=== PATIENT | female | born 1950 | race Caucasian/White ===

== ENCOUNTER → 2018-01-06 12:44 | Outpatient (CLI) | payer MEDICARE, SELFPAY ==
--- NOTE | 2018-01-06 12:51 | US_ITS ---
US breast LT complete COMPARISON: Digital mammograms 11/01/2017 and additional views left breast 01/06/2018 HISTORY: Possible asymmetric densities left breast seen on recent mammogram TECHNIQUE: Targeted ultrasound evaluation of the entire breast FINDINGS: Diffuse heterogenic echogenicity is seen all 4 quadrants of the breast. There is no definite cystic or solid lesions identified and there are no findings to suggest architectural distortion. There is a normal-appearing node in the axilla. IMPRESSION: Essentially negative ultrasound left breast no cystic or solid lesions identified, the asymmetric densities likely represent asymmetric glandular tissue. Recommend the patient continue with yearly screening mammography
--- NOTE | 2018-01-06 12:51 | MM_ITS ---
MM Dig mamm DX unilat LT CAD COMPARISON: Digital mammograms 11/01/2017 INDICATION: Possible change in asymmetric densities left breast ORDERING PHYSICIAN: Lucho Zaldivar MD PATIENT AGE: 67 years TECHNIQUE: Possible compression MLO and CC views and 90 degrees lateral spot view FINDINGS: Scattered fibroglandular densities are seen in the breast. The spot views appear to show benign-appearing asymmetric densities primarily upper outer quadrant. However ultrasound performed the same date showed no ultrasound correlation with either cystic or solid lesions. These areas likely represent asymmetric glandular tissue. IMPRESSION: No definite suspicious lesion seen on the additional views, negative ultrasound examination same date, recommend continued yearly screening mammography BI-RADS Category: 2 Benign Finding(s) RECOMMENDED FOLLOW-UP: 1YR - 1 YEAR FOLLOW-UP (A letter has been sent to the patient regarding results of the study.)
== END ==
PROVIDERS: Family Provider Nurse Practitioner Family; PCP Internal Medicine Adolescent Medicine; Visit Provider Internal Medicine Adolescent Medicine
DX: R92.8 Other abnormal and inconclusive findings on diagnostic imaging of breast (principal)
CPT/HCPCS: 76641; 77065

== ENCOUNTER → 2018-08-18 10:50 | Outpatient (CLI) | payer MEDICARE, SELFPAY ==
[2018-08-18 11:38] LABS: Basophils % 0.4 % (0.1-2.0); Eosinophils # 0.1 K/mm3 (0.0-0.4); Eosinophils % 1.9 % (0.1-12.0); Hematocrit 41.5 % (37.0-47.0); Hemoglobin 13.9 g/dL (12.2-16.2); Lymphocytes # 1.9 K/mm3 (0.7-4.5); Lymphocytes % 32.8 K/mm3 (10-50); Mean Corpuscular HGB Conc 33.5 g/dL (31.8-35.4); Mean Corpuscular Volume 89.7 fl (81-99); Mean Platelet Volume 7.1 fl (7.4-10.4); Monocytes # 0.3 K/mm3 (0.1-1.0); Monocytes % 4.6 % (1.7-9.3); Neutrophils # 3.4 K/mm3 (1.8-7.8); Neutrophils % 60.3 % (37.0-80.0); Platelet Count 225 K/mm3 (142-424); Red Blood Count 4.63 M/mm3 (4.20-5.40); Red Cell Distribution Width 13.2 % (11.5-17.5); White Blood Count 5.6 K/mm3 (4.8-10.8)
[2018-08-18 12:18] LABS: Chol/HDL Ratio 5.3 (1-3.5); Cholesterol 207 mg/dL (140-200); HDL Cholesterol 39 mg/dL (29-89); LDL Cholesterol 135 mg/dL (0-130); Thyroid Stimulating Hormone 2.74 uIU/ml (0.358-3.740); Triglycerides 167 mg/dL (30-200); VLDL Cholesterol 33 mg/dL (0-40)
[2018-08-19 17:51] LABS: Alanine Aminotransferase 32 U/L (12-78); Albumin Level 4.1 gm/dL (3.4-5.0); Albumin/Globulin Ratio 1.2 (1.1-1.8); Alkaline Phosphatase 78 U/L (46-116); Anion Gap 11.7 mEq/L (5-15); Aspartate Amino Transferase 19 U/L (15-37); Bilirubin,Total 0.8 mg/dL (0.2-1.0); Blood Urea Nitrogen 18 mg/dL (7-18); Calcium 8.7 mg/dL (8.5-10.1); Carbon Dioxide 30 mmol/L (21.0-32.0); Chloride 104 mmol/L (98-107); Creatinine,Serum 0.65 mg/dL (0.55-1.02); Estimated Glomerular Filt Rate 91 ml/min (>60); GFR (African American) 110 ML/MIN (>60); Globulin 3.5 gm/dl (1.3-3.2); Glucose 137 mg/dL (74-106); Potassium 4.7 mmoL/L (3.5-5.1); Sodium 141 mmol/L (136-145); Total Protein,Serum 7.6 gm/dL (6.4-8.2)
== END ==
PROVIDERS: PCP Internal Medicine Adolescent Medicine; Visit Provider Nurse Practitioner Family
DX: R60.9 Edema, unspecified (principal); I10 Essential (primary) hypertension
CPT/HCPCS: 36415; 80053; 80061; 84443; 85025

== ENCOUNTER → 2019-03-13 11:29 | Outpatient (CLI) | payer MEDICARE, SELFPAY ==
[2019-03-13 12:25] LABS: Basophils % 0.4 % (0.1-2.0); Eosinophils # 0.1 K/mm3 (0.0-0.4); Eosinophils % 1.4 % (0.1-12.0); Hematocrit 38.5 % (37.0-47.0); Hemoglobin 13.3 g/dL (12.2-16.2); Lymphocytes # 2.2 K/mm3 (0.7-4.5); Lymphocytes % 31.3 % (10-50); Mean Corpuscular HGB Conc 34.6 g/dL (31.8-35.4); Mean Corpuscular Hemoglobin 30.1 pg (27.0-31.2); Mean Corpuscular Volume 87.2 fl (81-99); Mean Platelet Volume 7.2 fl (7.4-10.4); Monocytes # 0.3 K/mm3 (0.1-1.0); Monocytes % 4.4 % (1.7-9.3); Neutrophils # 4.5 K/mm3 (1.8-7.8); Neutrophils % 62.6 % (37.0-80.0); Platelet Count 277 K/mm3 (142-424); Red Blood Count 4.41 M/mm3 (4.20-5.40); Red Cell Distribution Width 13.1 % (11.5-17.5); White Blood Count 7.1 K/mm3 (4.8-10.8)
[2019-03-13 12:36] LABS: Hemoglobin A1C 6.5 % (0.0-7.0)
[2019-03-13 13:41] LABS: Erythrocyte Sedimentation Rate 52 mm/hr (0-30)
[2019-03-13 15:27] LABS: Alanine Aminotransferase 33 U/L (12-78); Albumin Level 4.4 gm/dL (3.4-5.0); Albumin/Globulin Ratio 1.2 (1.1-1.8); Alkaline Phosphatase 76 U/L (46-116); Anion Gap 12.6 mEq/L (5-15); Aspartate Amino Transferase 19 U/L (15-37); Bilirubin,Total 1.4 mg/dL (0.2-1.0); Blood Urea Nitrogen 24 mg/dL (7-18); Carbon Dioxide 29 mmol/L (21.0-32.0); Chloride 100 mmol/L (98-107); Chol/HDL Ratio 5.7 (1-3.5); Cholesterol 229 mg/dL (140-200); Creatinine,Serum 0.85 mg/dL (0.55-1.02); Estimated Glomerular Filt Rate 66 ml/min (>60); GFR (African American) 80 ML/MIN (>60); Globulin 3.8 gm/dl (1.3-3.2); Glucose 120 mg/dL (74-106); HDL Cholesterol 40 mg/dL (29-89); LDL Cholesterol 166 mg/dL (0-130); Potassium 4.6 mmoL/L (3.5-5.1); Sodium 137 mmol/L (136-145); Thyroid Stimulating Hormone 2.74 uIU/ml (0.358-3.740); Total Protein,Serum 8.2 gm/dL (6.4-8.2); Triglycerides 117 mg/dL (30-200); Uric Acid 6.4 mg/dL (2.6-7.2); VLDL Cholesterol 23 mg/dL (0-40)
== END ==
PROVIDERS: Visit Provider Nurse Practitioner Family
DX: I10 Essential (primary) hypertension (principal); R73.03 Prediabetes; M25.572 Pain in left ankle and joints of left foot; E01.0 Iodine-deficiency related diffuse (endemic) goiter
CPT/HCPCS: 36415; 80053; 80061; 83036; 84443; 84550; 85025; 85651

== ENCOUNTER → 2019-03-30 09:51 | Outpatient (CLI) | payer MEDICARE, SELFPAY ==
--- NOTE | 2019-03-30 09:57 | MM_ITS ---
MM Dig screening mamm BI w/CAD CAD Screening COMPARISON: Digital mammograms with CAD 11/01/2017] additional views left breast 01/06/2018 INDICATION: Is a history of breast cancer patient's 3 paternal cousins. TECHNIQUE: Standard CC and MLO images were obtained. R2 CAD reviewed. FINDINGS: Scattered fibroglandular densities are seen in both breasts. There is benign-appearing asymmetric density upper outer quadrant left breast which was noted previously. This is stable and unchanged in appearance. There are couple stable benign-appearing microcalcifications in the left breast. There is a mole marker right breast. There is no suspicious lesion and there are no suspicious microcalcifications. IMPRESSION: Fibrofatty parenchyma with no suspicious lesion seen BI-RADS Category: 2 Benign Finding(s) RECOMMENDED FOLLOW-UP: 1YR - 1 YEAR FOLLOW-UP (A letter has been sent to the patient regarding results of the study.)
== END ==
PROVIDERS: PCP Nurse Practitioner Family; Visit Provider Nurse Practitioner Family
DX: Z12.31 Encounter for screening mammogram for malignant neoplasm of breast (principal)
CPT/HCPCS: 77067

== ENCOUNTER → 2019-07-14 13:31 | Outpatient (CLI) | payer MEDICARE, SELFPAY ==
--- NOTE | 2019-07-14 13:33 | MR_ITS ---
PROCEDURE: MR LUMBAR SPINE WO CON CLINICAL INDICATION: ACUTE LEFT SIDED LOW BACK PAIN Acute left-sided low back pain, left leg pain COMPARISON: No exams were available for comparison TECHNIQUE: Standard multiplanar multiecho sequences are performed without contrast. 3-D MIP and myelographic images are also rendered and reviewed FINDINGS: Spinal cord ends at the T12 level. L1-L2: Mild degenerative disc disease. L2-L3: Degenerate disc disease with end plate osteophytes and mild type 1 endplate changes posteriorly. There is bulging disc along with a small extruded left herniated disc with mild inferior extrusion impinging upon the left L2 nerve root. There is moderate left lateral recess narrowing. L3-L4: Degenerate disc disease with bulging disc along with moderate facet and ligamentum hypertrophy with bilateral lateral recess narrowing slightly greater on the right and mild right-sided and moderate left-sided foraminal narrowing. L4-5: 5 mm anterolisthesis of L3 with bulging disc along with severe facet ligamentum hypertrophy. There is severe canal stenosis with the canal measuring proximally 6 mm. There is severe bilateral lateral recess and severe bilateral foraminal narrowing. L5-S1: Moderate facet ligamentum hypertrophy with severe bilateral lateral recess and foraminal narrowing with bulging disc. Incidental note is made of an 18 mm and a a 8 mm left renal cyst as well as a 5 mm right renal cyst. IMPRESSION: Abnormal MRI of the lumbar spine with multilevel lumbar spondylosis with facet ligamentum hypertrophy. L2-L3: Degenerate disc disease with end plate osteophytes and mild type 1 endplate changes posteriorly. There is bulging disc along with a small extruded left herniated disc with mild inferior extrusion impinging upon the left L2 nerve root. There is moderate left lateral recess narrowing. L3-L4: Degenerate disc disease with bulging disc along with moderate facet and ligamentum hypertrophy with bilateral lateral recess narrowing slightly greater on the right and mild right-sided and moderate left-sided foraminal narrowing. L4-5: 5 mm anterolisthesis of L3 with bulging disc along with severe facet ligamentum hypertrophy. There is severe canal stenosis with the canal measuring proximally 6 mm. There is severe bilateral lateral recess and severe bilateral foraminal narrowing. L5-S1: Moderate facet ligamentum hypertrophy with severe bilateral lateral recess and foraminal narrowing with bulging disc Dictated by: Harinder Milner MD 07/15/2019 07:58 Signed by: <Electronically signed by Harinder Milner MD in [place]> 07/15/2019 07:58
== END ==
PROVIDERS: PCP Nurse Practitioner Family; Visit Provider Internal Medicine Adolescent Medicine
DX: M54.42 Lumbago with sciatica, left side (principal)
CPT/HCPCS: 72148; 76376

== ENCOUNTER → 2019-08-07 10:15 | Outpatient (POV) | payer MEDICARE, SELFPAY ==
[2019-08-07 10:51] VITALS: BP 132/87; PULSE 100; RESP 18; O2SAT 98; BMI 36.2
--- NOTE | 2019-08-07 14:16 | HMH.PMCON ---
Assessment and Plan (1) Degenerative joint disease (DJD) of lumbar spine Current visit: Yes Status: Chronic Qualifiers: Spinal osteoarthritis complication: with radiculopathy Qualified Code(s): M47.26 - Other spondylosis with radiculopathy, lumbar region Category: Medical Code(s): M47.816 - Spondylosis without myelopathy or radiculopathy, lumbar region - Assessment and plan all Dx Assessment and Plan for all problems:: We will schedule a L2-L3 lumbar epidural steroid injection for the patient. I believe it would be beneficial given her symptomology. Patient is not on any anticoagulation therapy she is continuing a home stretching program. Patient's been instructed to call the office if she has any issues prior to her next appointment. Dr. Mancera has reviewed this note and agrees with this plan of care. This note was dictated using voice recognition software and may contain errors or omissions HPI - Data of Consult Consult date: 08/07/19 Requesting Physician: Clarissa Lopez APRN Primary Care Provider: Maeve Simpson APRN - Consult Narrative Reason for consult: Back pain History of present illness: Ms. Collins is a 69 year old female who presents today for consultation in regards to her low back pain. She has an MRI showing ligamentum flavum hypertrophy, spinal stenosis, degenerative disc disease to L2 with nerve impingement on the left side. Most of the patient's pain is on the left side. Radiating down her leg. Patient is interested in injective therapy. Patient has numbness and tingling to her foot on that side. She is not on any anticoagulation therapy. She is continuing a home stretching program. She is on anti-inflammatories. CC: Clarissa Lopez APRN [facility] History I have reviewed the patient's past medical history: Yes Medical History: Reports:: Hypertension Denies:: Cancer, Diabetes Mellitus Type 1, Diabetes Mellitus Type 2, MRSA *Have you ever received a pneumonia vaccine?: Yes *Have you received a flu vaccine this season?: Yes Other Surgeries: Yes: Hysterectomy-Total Amputation: No Fractures: No - *Social History Smoking Status: Never smoker Alcohol Intake: never *Occupational Status:: other Housing: house Household Members: other *Travel in the last 8 weeks: None Family Hx:: Unable to obtain Review of Systems - Review of Systems ROS General: no recent weight change, no fever, no sleep disturbances Respiratory: no cough, no shortness of air, no recurring pulmonary infections Cardiovascular/Peripheral Vascular: No chest pain, No palpitations, no edema, no shortness of breath. Gastrointestinal: no incontinence, normal bowel movements reported Genitourinary: no incontinence Musculoskeletal: Back pain, leg pain Psychiatric: normal mood/ affect Neurological: [denies weakness in extremities], [denies balance issues] Meds Allergies Allergy/AdvReac Type Severity Reaction Status Date / Time No Known Allergies Allergy Unverified 11/09/17 14:45 Objective Vital signs: Pulse Resp BP Pulse Ox 100 H 18 132/87 98 08/07/19 10:51 08/07/19 10:51 08/07/19 10:51 08/07/19 10:51 Narrative: Physical Exam General: Alert and oriented x3, no acute distress, pleasant and cooperative, [on room air] Lungs: Resps E/U, Symmetrical chest expansion, Eyes: PERRL Musculoskeletal: Flexion and extension of lumbar spine somewhat guarded secondary to pain, deep tendon reflexes normal, strength in upper and lower extremities [5/5], [abnormal gait noted] Neurological: speech clear, aircraft mechanic structures equal, no gross sensory deficits Opioid Risk Tool - Opioid Risk Tool-Female Family hx alcohol abuse: N Family hx illegal drugs: N Family hx rx drug abuse: N Personal hx alcohol abuse: N Personal hx illegal drugs: N Personal hx rx drug abuse: N Age: 45+ Hx of sexual abuse: N Mental health issues-ADD,OCD,Bipolar, etc: N Hx of depression: N Female Risk Score:
--- NOTE | 2019-08-07 14:19 | P.CONS_ITS ---
Assessment and Plan (1) Degenerative joint disease (DJD) of lumbar spine Current visit: Yes Status: Chronic Qualifiers: Spinal osteoarthritis complication: with radiculopathy Qualified Code(s): M47.26 - Other spondylosis with radiculopathy, lumbar region Category: Medical Code(s): M47.816 - Spondylosis without myelopathy or radiculopathy, lumbar region - Assessment and plan all Dx Assessment and Plan for all problems:: We will schedule a L2-L3 lumbar epidural steroid injection for the patient. I believe it would be beneficial given her symptomology. Patient is not on any anticoagulation therapy she is continuing a home stretching program. Patient's been instructed to call the office if she has any issues prior to her next appointment. Dr. Mancera has reviewed this note and agrees with this plan of care. This note was dictated using voice recognition software and may contain errors or omissions HPI - Data of Consult Consult date: 08/07/19 Requesting Physician: Clarissa Lopez APRN Primary Care Provider: Maeve Simpson APRN - Consult Narrative Reason for consult: Back pain History of present illness: Ms. Collins is a 69 year old female who presents today for consultation in regards to her low back pain. She has an MRI showing ligamentum flavum hypertrophy, spinal stenosis, degenerative disc disease to L2 with nerve impingement on the left side. Most of the patient's pain is on the left side. Radiating down her leg. Patient is interested in injective therapy. Patient has numbness and tingling to her foot on that side. She is not on any anticoagulation therapy. She is continuing a home stretching program. She is on anti-inflammatories. CC: Clarissa Lopez APRN [facility] History I have reviewed the patient's past medical history: Yes Medical History: Reports:: Hypertension Denies:: Cancer, Diabetes Mellitus Type 1, Diabetes Mellitus Type 2, MRSA *Have you ever received a pneumonia vaccine?: Yes *Have you received a flu vaccine this season?: Yes Other Surgeries: Yes: Hysterectomy-Total Amputation: No Fractures: No - *Social History Smoking Status: Never smoker Alcohol Intake: never *Occupational Status:: other Housing: house Household Members: other *Travel in the last 8 weeks: None Family Hx:: Unable to obtain Review of Systems - Review of Systems ROS General: no recent weight change, no fever, no sleep disturbances Respiratory: no cough, no shortness of air, no recurring pulmonary infections Cardiovascular/Peripheral Vascular: No chest pain, No palpitations, no edema, no shortness of breath. Gastrointestinal: no incontinence, normal bowel movements reported Genitourinary: no incontinence Musculoskeletal: Back pain, leg pain Psychiatric: normal mood/ affect Neurological: [denies weakness in extremities], [denies balance issues] Meds Allergies Allergy/AdvReac Type Severity Reaction Status Date / Time No Known Allergies Allergy Unverified 11/09/17 14:45 Objective Vital signs: Pulse Resp BP Pulse Ox 100 H 18 132/87 98 08/07/19 10:51 08/07/19 10:51 08/07/19 10:51 08/07/19 10:51 Narrative: Physical Exam General: Alert and oriented x3, no acute distress, pleasant and cooperative, [on room air] Lungs: Resps E/U, Symmetrical chest expansion, Eyes: PERRL Muscul
== END ==
PROVIDERS: PCP Nurse Practitioner Family; Visit Provider Clinical Nurse Specialist Family Health
DX: M47.816 Spondylosis without myelopathy or radiculopathy, lumbar region (principal)
CPT/HCPCS: 99202

== ENCOUNTER → 2019-09-04 10:04 | Outpatient (POV) | payer MEDICARE, SELFPAY ==
[2019-09-04 10:32] VITALS: BP 115/70; PULSE 102; RESP 18; O2SAT 98; BMI 35.9
--- NOTE | 2019-09-04 12:51 | HMH.PAINSOAP ---
[facility] Pain Management SOAP Note Subjective:: Patient is a 69-year-old white female who presents today for follow-up after lumbar epidural steroid injection. Patient rates her pain a 5 out of 10. She did not get any relief from her epidural. Patient does have significant spinal stenosis with ligamentum flavum hypertrophy. She and I discussed a mild procedure at the L2-L3 L3-L4 levels. Dr. Mancera is done epidurogram at these levels where there is significant stenosis at these levels. Patient is not on any anticoagulation therapy. Most of her pain is when she standing and walking. She finds her self leaning forward to get relief. It has begun to interfere with activities of daily living ROS General: no recent weight change, no fever, no sleep disturbances Respiratory: no cough, no shortness of air, no recurring pulmonary infections Cardiovascular/Peripheral Vascular: No chest pain, No palpitations, no edema, no shortness of breath. Gastrointestinal: no incontinence, normal bowel movements reported Genitourinary: no incontinence Musculoskeletal: Back pain, leg pain Psychiatric: normal mood/ affect Neurological: [denies weakness in extremities], [denies balance issues] Objective:: Physical Exam General: Alert and oriented x3, no acute distress, pleasant and cooperative, [on room air] Lungs: Resps E/U, Symmetrical chest expansion, Eyes: PERRL Musculoskeletal: Flexion and extension of lumbar spine somewhat guarded secondary to pain, deep tendon reflexes normal, strength in upper and lower extremities [5/5], [abnormal gait noted] Neurological: speech clear, storage battery inspector and tester equal, no gross sensory deficits Assessment:: Degenerative disc disease lumbar spine with lumbar spinal stenosis neurogenic claudication Plan:: Patient is going to look into the mild procedure and give us a call if she would like to move forward with that I do think it would be beneficial for her we will do the L2-L3 L3-L4 levels. Dr. Mancera has reviewed this note and agrees with this plan of care. This note was dictated using voice recognition software and may contain errors or omissions [facility] History I have reviewed the patient's past medical history: Yes Medical History: Reports:: Hypertension Denies:: Cancer, Diabetes Mellitus Type 1, Diabetes Mellitus Type 2, MRSA, Seizures *Have you ever received a pneumonia vaccine?: Yes *Have you received a flu vaccine this season?: Yes Other Surgeries: Yes: Hysterectomy-Total Amputation: No Fractures: No - *Social History Smoking Status: Never smoker Alcohol Intake: never *Occupational Status:: other Housing: house Household Members: spouse, other *Travel in the last 8 weeks: None Family Hx:: Unable to obtain
== END ==
PROVIDERS: PCP Nurse Practitioner Family; Visit Provider Clinical Nurse Specialist Family Health
DX: M48.062 Spinal stenosis, lumbar region with neurogenic claudication (principal)
CPT/HCPCS: 99212

== ENCOUNTER → 2019-10-17 09:21 | Outpatient (POV) | payer MEDICARE, SELFPAY ==
[2019-10-17 09:35] VITALS: BP 149/71; PULSE 91; RESP 18; O2SAT 98; BMI 35.9
--- NOTE | 2019-10-17 09:46 | HMH.PAINSOAP ---
[facility] Pain Management SOAP Note Subjective:: Patient is a pleasant 69-year-old white female who presents today for follow-up after a mild procedure. Patient rates her pain a 1 out of 10 she states she is able to stand and walk with not as much pain in her legs. Patient overall doing extremely well and is very satisfied with her progress. Patient has completely healed from the incisions. ROS General: no recent weight change, no fever, no sleep disturbances Respiratory: no cough, no shortness of air, no recurring pulmonary infections Cardiovascular/Peripheral Vascular: No chest pain, No palpitations, no edema, no shortness of breath. Gastrointestinal: no new onset incontinence, normal bowel movements reported Genitourinary: no new onset incontinence Musculoskeletal: Back pain leg pain at times Psychiatric: normal mood/ affect Neurological: [denies new onset weakness in extremities], [denies new onset balance issues] Objective:: Physical Exam General: Alert and oriented x3, no acute distress, pleasant and cooperative, [on room air] Lungs: Resps E/U, Symmetrical chest expansion, Eyes: PERRL Musculoskeletal: Flexion and extension of lumbar spine somewhat guarded secondary to pain, deep tendon reflexes normal, strength in upper and lower extremities [5/5], normal gait noted Neurological: speech clear, therapeutic activities services worker equal, no gross sensory deficits Assessment:: Spinal stenosis with neurogenic claudication Plan:: We will follow-up with the patient 1 month reassess her symptoms at that time she has been instructed to call the office if she has any issues prior to her next appointment. Dr. Mancera has reviewed this note and agrees with this plan of care. This note was dictated using voice recognition software and may contain errors or omissions [facility] History I have reviewed the patient's past medical history: Yes Medical History: Reports:: Diabetes Mellitus Type 2, Hypertension Denies:: Cancer, Diabetes Mellitus Type 1, Internal Pacemaker, MRSA, Seizures *Have you ever received a pneumonia vaccine?: Yes *Have you received a flu vaccine this season?: Yes Other Medical History: Denies: Blood Transfusion Reaction Laterality Cases: Bilateral: Carpal Tunnel Release Other Surgeries: Yes: Hysterectomy-Total. No: Pacemaker Amputation: No Fractures: No - *Social History Smoking Status: Never smoker Alcohol Intake: never Substance Use Type: other *Occupational Status:: other Housing: house Household Members: spouse, other *Travel in the last 8 weeks: None Family Hx:: Cancer, Diabetes, Hyperlipidemia, Hypertension, Stroke
== END ==
PROVIDERS: PCP Nurse Practitioner Family; Visit Provider Clinical Nurse Specialist Family Health
DX: M48.062 Spinal stenosis, lumbar region with neurogenic claudication (principal)
CPT/HCPCS: 99212

== ENCOUNTER → 2019-11-20 09:33 | Outpatient (POV) | payer MEDICARE, SELFPAY ==
[2019-11-20 09:59] VITALS: BP 137/74; PULSE 96; RESP 18; BMI 35.9
--- NOTE | 2019-11-20 10:00 | P.CONS_ITS ---
[facility] Pain Management SOAP Note Subjective:: Patient is a pleasant 69-year-old white female who presents today for follow-up after a minimally invasive lumbar decompression procedure. Patient is being treated for spinal stenosis with neurogenic claudication. Patient says that she is doing well following her procedure. She rates her pain a 2 out of 10 today. Patient says she is able to walk and stand for longer periods of time. She says she is having less weakness to her lower extremities. She is very satisfied following the procedure. Patient says that she is now dealing with a new diagnosis of cancer with her . She does say, however, she is feeling much better. She is continuing with anti-inflammatories and a home stretching program. Review of Systems General: No recent weight changes, no fever, no sleep disturbances Respiratory: No cough, no shortness of air, no recurring pulmonary infections Cardiovascular/peripheral vascular: No chest pain, no palpitations, no edema, no shortness of breath Gastrointestinal: No new onset incontinence, normal bowel movements reported Genitourinary: No new onset incontinence Musculoskeletal: Low back pain Psychiatric: Normal mood/affect Neurological: [Denies weakness in extremities], [denies balance issues] Objective:: Physical exam General: Alert and oriented x3, no acute distress, pleasant and cooperative, [on room air] Lungs: Respirations even and unlabored, symmetrical chest expansion Eyes: PERRL Musculoskeletal: Flexion and extension of lumbar spine somewhat guarded secondary to pain, deep tendon reflexes normal, strength in upper and lower extremities [5/5], [abnormal gait noted] Neurological: Speech clear, railroad design consultant equal, no gross sensory deficit Assessment:: Spinal stenosis with neurogenic claudication Plan:: Overall, the patient is doing well following her mild procedure. Patient says that she is doing very well. We will follow-up with her in 3 months to reassess her symptoms. The patient has been instructed to contact the clinic if she has any concerns before her next appointment. Dr. Mancera has reviewed this note and agrees with this plan of care. This note was dictated using voice recognition software and make contain errors or omissions. [facility] History I have reviewed the patient's past medical history: Yes Medical History: Reports:: Diabetes Mellitus Type 2, Hypertension Denies:: Cancer, Diabetes Mellitus Type 1, Internal Pacemaker, MRSA, Seizures *Have you ever received a pneumonia vaccine?: Yes *Have you received a flu vaccine this season?: Yes Other Medical History: Denies: Blood Transfusion Reaction Laterality Cases: Bilateral: Carpal Tunnel Release Other Surgeries: Yes: Hysterectomy-Total. No: Pacemaker Amputation: No Fractures: No - *Social History Smoking Status: Never smoker Alcohol Intake: never Substance Use Type: other *Occupational Status:: other Housing: house Household Members: spouse, other *Travel in the last 8 weeks: None Family Hx:: Cancer, Diabetes, Hyperlipidemia, Hypertension, Stroke
== END ==
PROVIDERS: PCP Internal Medicine Adolescent Medicine; Visit Provider Clinical Nurse Specialist Family Health
DX: M48.062 Spinal stenosis, lumbar region with neurogenic claudication (principal)
CPT/HCPCS: 99212

== ENCOUNTER → 2020-08-07 09:04 | Outpatient (CLI) | payer MEDICARE, SELFPAY ==
--- NOTE | 2020-08-07 10:02 | MM_ITS ---
PROCEDURE: MM DIG SCREENING MAMM BI W/CAD Digital Breast Tomosynthesis Included CLINICAL INDICATION: SCREENING There is a history of breast cancer in the patient's 3 maternal cousins. COMPARISON: MG DMSB DIG MAMM-SCREEN GARIMA W/CAD from 11/01/2017 MG DXLT MM Dig mamm DX unilat LT CAD from 01/06/2018 MG DIG MAMM-SCREEN GARIMA from 03/30/2019 TECHNIQUE: Standard CC and MLO images and 3D Tomosynthesis was obtained. R2 CAD reviewed. FINDINGS: Mild to moderate scattered fibroglandular densities are seen throughout both breasts. There is a mole marker near the axillary tail right breast. There couple of benign-appearing calcifications in each breast. There is a stable small benign-appearing nodular density outer quadrant left breast. There is no suspicious lesion and no suspicious microcalcifications. IMPRESSION: Fibrofatty parenchyma with no suspicious lesions seen BI-RAD Category: 2 Benign Finding(s) FOLLOW-UP: 1YR 1 Year Follow-up (A letter has been sent to the patient regarding results of the study.) Dictated by: Dr. Wilfredo Mccloud MD 08/09/2020 12:43 Dr. Wilfredo Mccloud MD in [place] 08/09/2020 12:43
[2020-08-07 10:29] LABS: Chloride 103 mmol/L (98-107); Sodium 138 mmol/L (136-145)
[2020-08-07 10:30] LABS: Potassium 4.3 mmoL/L (3.5-5.1)
[2020-08-07 10:32] LABS: Alanine Aminotransferase 22 U/L (12-78); Albumin Level 4.1 g/dl (3.5-5.0); Albumin/Globulin Ratio 1.3 (1.1-1.8); Alkaline Phosphatase 67 U/L (38-126); Anion Gap 14.3 mEq/L (5-15); Aspartate Amino Transferase 27 U/L (14-36); Bilirubin,Total 0.9 mg/dl (0.2-1.3); Blood Urea Nitrogen 22 mg/dl (7-17); Carbon Dioxide 25 mmol/L (22.0-30.0); Estimated Glomerular Filt Rate 71 ml/min (>60); GFR (African American) 86 ML/MIN (>60); Globulin 3.2 g/dL (1.3-3.2); Total Protein,Serum 7.3 g/dl (6.3-8.2)
[2020-08-07 10:33] LABS: Calcium 9.8 mg/dl (8.4-10.2); Chol/HDL Ratio 5.5 (1-3.5); Cholesterol 229 mg/dl (140-200); Glucose 132 mg/dl (74-100); HDL Cholesterol 42 mg/dl (40-60); Triglycerides 220 mg/dl (30-150); VLDL Cholesterol 44 mg/dL (0-40)
[2020-08-07 10:40] LABS: Creatinine,Urine Random 70 mg/dL (Not Estab.)
[2020-08-07 10:42] LABS: Microalbumin/Creatinine Ratio 9.5
[2020-08-07 10:44] LABS: Direct LDL Cholesterol 138.35 mg/dL (100-129)
[2020-08-07 11:06] LABS: Hemoglobin A1C 6.4 % (4.0-6.0)
== END ==
PROVIDERS: Visit Provider Nurse Practitioner Family
DX: Z12.31 Encounter for screening mammogram for malignant neoplasm of breast (principal); R73.03 Prediabetes; I10 Essential (primary) hypertension
CPT/HCPCS: 36415; 77063; 77067; 80053; 80061; 82043; 82570; 83036

== ENCOUNTER → 2021-04-08 10:48 | Outpatient (CLI) | payer MEDICARE, SELFPAY ==
--- NOTE | 2021-04-08 10:52 | MM_ITS ---
PROCEDURE INFORMATION: Exam: MG Screening 3D Mammography Exam date and time: 04/08/2021 10:52 AM Age: 71 years old Clinical indication: screening mammogram TECHNIQUE: Imaging protocol: Screening tomosynthesis and 2D mammography including computer-aided detection (CAD) when performed. COMPARISON: 1. MG MM DIG SCREENING MAMM BI W/CAD 08/07/2020 10:14 AM 2. MG DIG MAMM-SCREEN GARIMA 03/30/2019 10:05 AM 3. MG DXLT MM Dig mamm DX unilat LT CAD 01/06/2018 1:16 PM 4. MG DMSB DIG MAMM-SCREEN GARIMA W/CAD 11/01/2017 3:34 PM FINDINGS: MAMMOGRAPHY: Breast composition: There are scattered areas of fibroglandular density. Mass: None. Architectural distortion: No new or suspicious architectural distortion. Calcifications: No new or suspicious calcifications are present Asymmetric density: Focal asymmetry within the upper outer left middle 1/3 breast measuring 8 mm, should be further assessed with spot views in CC/MLO projection to confirm and further characterize. Ultrasound should also be performed. Skin thickening: None. Axillary adenopathy: None. IMPRESSION: Focal asymmetry within the upper outer left middle 1/3 breast measuring 8 mm, should be further assessed with spot views in CC/MLO projection to confirm and further characterize. Ultrasound should also be performed. ASSESSMENT: BI-RADS category 0: Incomplete-need additional imaging evaluation
== END ==
PROVIDERS: PCP Internal Medicine Adolescent Medicine; Visit Provider Nurse Practitioner Family
DX: Z12.31 Encounter for screening mammogram for malignant neoplasm of breast (principal)
CPT/HCPCS: 77063; 77067

== ENCOUNTER → 2021-04-29 13:33 | Outpatient (CLI) | payer MEDICARE, SELFPAY ==
--- NOTE | 2021-04-29 13:35 | US_ITS ---
PROCEDURE: MM DIG MAMM DX UNILAT LT CAD Digital Breast Tomosynthesis Included RIGHT BREAST ULTRASOUND COMPLETE WITH AXILLA LEFT BREAST ULTRASOUND COMPLETE WITH AXILLA CLINICAL INDICATION: ABN MAMM Follow-up abnormal mammogram COMPARISON: US BREASTLT US breast LT complete from 01/06/2018 MG DIG MAMM-SCREEN GARIMA from 03/30/2019 MG MM DIG SCREENING MAMM BI W/CAD from 08/07/2020 MG MM DIG SCREENING MAMM BI W/CAD from 04/08/2021 US US BREAST LT COMPLETE from 04/29/2021 US US BREAST RT COMPLETE from 04/29/2021 TECHNIQUE: Problem solving views performed of the left breast along with bilateral breast ultrasound FINDINGS: Spot-compression views are obtained of the left breast. The area of asymmetric density appears to compress out as fibroglandular tissue. There is a stable nodular density in the lateral aspect of the left breast and an area of nodularity in the mid aspect of the left breast on the CC view not confirmed on the rolled views. Left breast ultrasound: No cystic or solid nodules evident. Right breast ultrasound: No cystic or solid nodules evident. Small nodes are present in the axilla. IMPRESSION: Probably benign findings regarding asymmetric density in the upper outer left breast. Recommend mammographic and sonographic follow-up six-month follow-up BI-RAD Category: 3 Probably Benign Finding Short Term Follow-Up FOLLOW-UP: 6M 6 Month Follow-up (A letter has been sent to the patient regarding results of the study.) Dictated by: Harinder Milner MD 05/02/2021 14:03 Harinder Milner MD in [place] 05/02/2021 14:03
== END ==
PROVIDERS: PCP Internal Medicine Adolescent Medicine; Visit Provider Nurse Practitioner Family
DX: R92.8 Other abnormal and inconclusive findings on diagnostic imaging of breast (principal)
CPT/HCPCS: 76641; 77061; 77065; G0279

== ENCOUNTER → 2022-01-05 13:22 | Outpatient (CLI) | payer MEDICARE, SELFPAY ==
--- NOTE | 2022-01-05 13:34 | MM_ITS ---
PROCEDURE INFORMATION: Exam: US Left Breast, Complete MG Left Diagnostic Breast Tomosynthesis Exam date and time: 01/05/2022 1:34 PM Age: 71 years old Clinical indication: Short-term radiographic follow-up for left breast asymmetry TECHNIQUE: Imaging protocol: Complete ultrasound of all four quadrants of the Left breast and the retroareolar regions, including ultrasound of the axilla when performed. Left Diagnostic tomosynthesis and 2D mammography including computer-aided detection (CAD) when performed. Unilateral or bilateral exam. COMPARISON: 1. MG MM DIG MAMM DX UNILAT LT CAD 04/29/2021 1:46 PM 2. MG MM DIG SCREENING MAMM BI W/CAD 04/08/2021 10:51 AM FINDINGS: MAMMOGRAPHY: The breast tissue is composed of scattered areas of fibroglandular density. There is no stellate mass, architectural distortion or suspicious microcalcifications in either breast to suggest malignancy. Stable nonspecific subcentimeter nodular parenchyma is noted in the left lateral breast. No skin thickening or axillary adenopathy. ULTRASOUND: Sonographic images of the left breast including the retroareolar region, all 4 quadrants and the axilla demonstrates a lobulated heterogeneous hypoechoic mass in the 3 o'clock axis 5 cm from the nipple measuring 0.6 x 0.5 cm in dimension, likely reflecting benign focal fibrocystic change. Incidental 0.2 cm left 3 o'clock axis cyst. No architectural distortion or acoustical shadowing. No skin thickening or axillary adenopathy. IMPRESSION: 1. Stable nonspecific subcentimeter nodular tissue in the left lateral breast compared to prior mammogram dated 04/29/2021. A six-month follow-up diagnostic bilateral mammogram is recommended for continued close surveillance of the left lateral breast as well as part of an annual screening schedule. 2. Sonographically visible indeterminate but probably benign mass in the left 3 o'clock axis. A six-month follow-up targeted left breast ultrasound is recommended to ensure stability over time. ASSESSMENT: BI-RADS Category 3: Probably benign
== END ==
PROVIDERS: PCP Internal Medicine Adolescent Medicine; Visit Provider Nurse Practitioner Family
DX: R92.8 Other abnormal and inconclusive findings on diagnostic imaging of breast (principal)
CPT/HCPCS: 76641; 77061; 77065; G0279

== ENCOUNTER → 2022-08-19 13:43 | Outpatient (CLI) | payer MEDICARE, SELFPAY ==
--- NOTE | 2022-08-19 13:47 | MM_ITS ---
PROCEDURE INFORMATION: Exam: MG Bilateral Diagnostic Breast Tomosynthesis Exam date and time: 08/19/2022 1:48 PM Age: 72 years old Clinical indication: Six-month follow-up for probably benign mammographic nodular tissue in the left lateral breast (from 04/08/2021, 04/29/2021 and 01/05/2022) and sonographic probably benign mass on the left at 3 o'clock (from 01/05/2022). Screening. A maternal cousin had breast cancer. . TECHNIQUE: Imaging protocol: Bilateral Diagnostic tomosynthesis and 2D mammography including computer-aided detection (CAD) when performed. Unilateral or bilateral exam. Spot compression added on the left. COMPARISON: 1. MG MM DIG MAMM DX UNILAT LT CAD 01/05/2022 1:52 PM 2. MG MM DIG MAMM DX UNILAT LT CAD 04/29/2021 1:46 PM 3. MG MM DIG SCREENING MAMM BI W/CAD 04/08/2021 10:51 AM MG DMSB DIGITAL MAMM-SCREEN BILATERAL 10/06/2010 1:32 PM FINDINGS: MAMMOGRAPHY: Breast composition: There are scattered areas of fibroglandular density. Mass: Oval 0.5 slightly lobulated mass in the left upper outer quadrant, middle 3rd, similar to 04/08/2021 and probably going back to 10/06/2010, given technical difference. Architectural distortion: None. Calcifications: No suspicious calcifications. Asymmetric density: None. Skin thickening: None. Axillary adenopathy: None. IMPRESSION: Patient to be recalled for targeted left sonography at 6 o'clock allowing six-month follow-up from the 01/05/2022 mammogram recommendation. Probably benign nodule in the left upper outer quadrant, suggest continued six-month follow-up left diagnostic mammogram to complete a 2 year cycle of surveillance from 04/08/2021. ASSESSMENT: BI-RADS Category 0: Incomplete- Need Additional Imaging Evaluation and/or Prior Mammograms for Comparison
== END ==
PROVIDERS: PCP Nurse Practitioner Family; Visit Provider Nurse Practitioner Family
DX: R92.8 Other abnormal and inconclusive findings on diagnostic imaging of breast (principal)
CPT/HCPCS: 77062; 77066; G0279

== ENCOUNTER → 2023-08-17 08:15 | Outpatient (CLI) | payer MEDICARE, SELFPAY ==
--- NOTE | 2023-08-17 08:20 | MM_ITS ---
PROCEDURE INFORMATION: Exam: MG Bilateral Screening 3D Mammography Exam date and time: 08/17/2023 8:30 AM Age: 73 years old Clinical indication: Screening examination; Family history of breast cancer : Maternal cousins TECHNIQUE: Imaging protocol: Bilateral Screening tomosynthesis and 2D mammography including computer-aided detection (CAD) when performed. COMPARISON: 1. MG MM DIG MAMM BI DX W/CAD 08/19/2022 1:48 PM 2. MG MM DIG MAMM DX UNILAT LT CAD 01/05/2022 1:52 PM FINDINGS: MAMMOGRAPHY: Breast composition: There are scattered areas of fibroglandular density. Mass: None. Architectural distortion: None. Calcifications: No suspicious calcifications. Asymmetric density: None. Skin thickening: None. Axillary adenopathy: None. IMPRESSION: No mammographic evidence of malignancy. Annual screening is recommended unless otherwise clinically indicated. ASSESSMENT: BI-RADS Category 1: Negative
--- NOTE | 2023-08-17 09:11 | XR_ITS ---
FINAL REPORT TECHNIQUE: Bone densitometry calculations of the lumbar spine and left hip were obtained. CLINICAL HISTORY: POST MENOPAUSAL FINDINGS: Using L1-4, the bone mineral density of the spine is 1.468 g/cm2, corresponding to T-score of 3.8. Using the right hip, the bone mineral density of the femoral neck is 0.709 g/cm2, corresponding to a T-score of -1.3. NOTE: T-score: Standard deviation compared with peak bone mass of young adult mean. *Following the recommendations of the International Society of Bone densitometry, classification of hip BMD is based on the lower of two T-scores; total hip or femoral neck. IMPRESSION: Normal bone mineral density of the lumbar spine. Diminished bone mineral density of the right hip consistent with osteopenia. FRAX data reports 9.2% for major osteoporotic fracture and 1.3% for hip fracture. Reviewed, Interpreted and Dictated by Blanca Bonilla MD Transcribed by Minerva Roper Authenticated and [facility]
[2023-08-17 10:37] LABS: Creatinine,Urine Random 65 mg/dL (Not Estab.)
[2023-08-17 10:40] LABS: Basophils % 0.7 % (0.1-2.0); Eosinophils # 0.2 K/mm3 (0.0-0.4); Eosinophils % 3.4 % (0.1-12.0); Hematocrit 39.3 % (37.0-47.0); Hemoglobin 12.7 g/dL (12.2-16.2); Lymphocytes # 1.9 K/mm3 (0.7-4.5); Mean Corpuscular HGB Conc 32.4 g/dL (31.8-35.4); Mean Corpuscular Hemoglobin 29.4 pg (27.0-31.2); Mean Corpuscular Volume 90.6 fl (81-99); Mean Platelet Volume 8.2 fl (7.4-10.4); Microalbumin/Creatinine Ratio 12.1; Monocytes # 0.2 K/mm3 (0.1-1.0); Monocytes % 5.1 % (1.7-9.3); Neutrophils # 2.3 K/mm3 (1.8-7.8); Neutrophils % 49.9 % (37.0-80.0); Platelet Count 189 K/mm3 (142-424); Red Blood Count 4.34 M/mm3 (4.20-5.40); Red Cell Distribution Width 13.3 % (11.5-17.5); White Blood Count 4.6 K/mm3 (4.8-10.8)
[2023-08-17 10:58] LABS: Alanine Aminotransferase 24 U/L (12-78); Albumin Level 4.1 g/dl (3.5-5.0); Albumin/Globulin Ratio 1.4 (1.1-1.8); Alkaline Phosphatase 66 U/L (38-126); Anion Gap 12.3 mEq/L (5-15); Aspartate Amino Transferase 29 U/L (14-36); Bilirubin,Total 0.7 mg/dl (0.2-1.3); Blood Urea Nitrogen 22 mg/dl (7-17); Carbon Dioxide 26 mmol/L (22.0-30.0); Chloride 105 mmol/L (98-107); Chol/HDL Ratio 2.8 (1-3.5); Cholesterol 131 mg/dl (140-200); Estimated Glomerular Filt Rate 61 ml/min (>60); GFR (African American) 74 ML/MIN (>60); Globulin 2.9 g/dL (1.3-3.2); Glucose 108 mg/dl (74-100); HDL Cholesterol 46 mg/dl (40-60); Potassium 4.3 mmoL/L (3.5-5.1); Sodium 139 mmol/L (136-145); Triglycerides 120 mg/dl (30-150); VLDL Cholesterol 24 mg/dL (0-40)
[2023-08-17 11:16] LABS: Hemoglobin A1C 6.1 % (4.0-6.0)
[2023-08-17 11:28] LABS: Thyroid Stimulating Hormone 2.57 uIU/mL (0.465-4.68)
== END ==
LOC: RAD 08:16 → LAB 09:11
PROVIDERS: PCP Nurse Practitioner Family; Visit Provider Nurse Practitioner Family
DX: Z12.31 Encounter for screening mammogram for malignant neoplasm of breast (principal); Z78.0 Asymptomatic menopausal state; I10 Essential (primary) hypertension; R73.03 Prediabetes; E78.5 Hyperlipidemia, unspecified; E04.1 Nontoxic single thyroid nodule; Z86.2 Personal history of diseases of the blood and blood-forming organs and certain disorders involving the immune mechanism
CPT/HCPCS: 36415; 77063; 77067; 77080; 80053; 80061; 82043; 82570; 83036; 84443; 85025

== ENCOUNTER 2024-10-03 09:43 | Outpatient (CLI) | payer MEDICARE, SELFPAY ==
--- NOTE | 2024-10-03 09:47 | MM_ITS ---
PROCEDURE INFORMATION: Exam: MG Bilateral Screening 3D Mammography Exam date and time: 10/03/2024 9:41 AM Age: 74 years old Clinical indication: Screening examination TECHNIQUE: Imaging protocol: Bilateral Screening tomosynthesis and 2D mammography including computer-aided detection (CAD) when performed. COMPARISON: 1. MG MM DIG SCREENING MAMM BI W/CAD 08/17/2023 8:30 AM 2. MG MM DIG MAMM BI DX W/CAD 08/19/2022 1:48 PM FINDINGS: MAMMOGRAPHY: Breast composition: There are scattered areas of fibroglandular density. Mass: None. Architectural distortion: None. Calcifications: No suspicious calcifications. Asymmetric density: None. Skin thickening: None. Axillary adenopathy: None. IMPRESSION: No mammographic evidence of malignancy. Annual screening is recommended unless otherwise clinically indicated. ASSESSMENT: BI-RADS Category 1: Negative.
== END 2024-10-03 23:59 | disposition home or self-care (01) ==
LOC: RAD 09:43
PROVIDERS: PCP Internal Medicine Adolescent Medicine; Visit Provider Internal Medicine Adolescent Medicine
DX: Z12.31 Encounter for screening mammogram for malignant neoplasm of breast (principal)
CPT/HCPCS: 77063; 77067

== ENCOUNTER 2024-11-28 10:21 | Emergency (ER) | payer MEDICARE, SELFPAY ==
[2024-11-28] VITALS (16 sets, daily range): BP systolic 139–209; BP diastolic 72–116; PULSE 89–126; RESP 18–22; TEMP 36.6–36.8; O2SAT 97–100; BMI 35.2
--- NOTE | 2024-11-28 10:49 | CT_ITS ---
FINAL REPORT TECHNIQUE: After the administration of oral and intravenous contrast, axial images were obtained through the abdomen and pelvis by computed tomography. The study was performed with techniques to keep radiation dose as low as reasonably achievable, (ALARA). Individual dose reduction techniques using automated exposure control or adjustment of mA and/or kV according to the patient's size were employed. CLINICAL HISTORY: constipation, severe suprapubic and LLQ apin COMPARISON: None FINDINGS: Abdomen: The lung bases are clear. The liver parenchyma is homogeneous. 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 The common bile duct is enlarged, measuring 10 mm in diameter. The spleen, pancreas, adrenals and kidneys appear unremarkable, other than a benign-appearing 2.3 cm left renal cyst. The aorta is normal in caliber. There is no free fluid or adenopathy. Pelvis: The appendix is not identified. The urinary bladder is remarkable for significant distention, measuring up to 16 cm in the craniocaudal dimension. There is no free fluid or adenopathy. Sagittal reconstructions reveal moderate canal compromise at the L2-3 level, consistent with moderate to severe lumbar stenosis. 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 Bladder is significantly distended as described, up to 16 mm in the craniocaudal dimension. Sagittal reconstructions demonstrate moderate lumbar canal compromise at the L2-3 level with moderate to severe canal stenosis. Reviewed, Interpreted and Dictated by Jos Vega MD Transcribed by Soni Juárez Authenticated and [facility]
[2024-11-28 10:54] LABS: Microscopic, Urine URINE MICROSCOPIC (MICROSCOPIC)
[2024-11-28 10:55] LABS: Appearance,Urine SL CLOUDY (Clear); Bilirubin,Urine Negative (Negative); Blood, Urine Negative (Negative); Color,Urine YELLOW (Yellow); Glucose,Urine (UA) Negative (Negative); Ketones,Urine Negative (Negative); Leukocyte Esterase,Urine TRACE (Negative); Nitrate,Urine POSITIVE (Negative); Protein,Urine Negative (Negative); Urobilinogen,Urine 0.2 EU/dl (0.2)
[2024-11-28 11:01] LABS: Bacteria,Urine 2+ /lpf; Squamous Epithelial Cell,Urine Occasional #/hpf (0-5); WBC,Urine Occasional #/hpf (0-3)
[2024-11-28] MEDS: KETOROLAC 30MG/ML VIAL 15 MG IV (11:02)
[2024-11-28] MEDS: ONDANSETRON 4MG/2ML VIAL 4 MG IV (11:03)
[2024-11-28] MEDS: LACTATED RINGERS 1000ML 1,000 ML 999 ML IV (11:03)
[2024-11-28] MEDS: HYDROMORPHONE 2MG/ML SYRINGE 0.5 MG IV (11:03)
[2024-11-28 11:04] LABS: Basophils % 0.2 % (0.1-2.0); Eosinophils # 0.1 K/mm3 (0.0-0.4); Mean Corpuscular HGB Conc 34.9 g/dL (31.8-35.4); Monocytes # 0.7 K/mm3 (0.1-1.0)
[2024-11-28 11:07] LABS: Albumin Level 4.1 g/dl (3.5-5.0); Chloride 101 mmol/L (98-107); Potassium 4.1 mmoL/L (3.5-5.1); Sodium 136 mmol/L (136-145)
[2024-11-28 11:09] LABS: Blood Urea Nitrogen 19 mg/dl (7-17); Creatinine Clearance Estimated 64 mL/min (50-200); Estimated Glomerular Filt Rate 82 ml/min (>60); GFR (African American) 99 ML/MIN (>60); Lactic Acid 1.8 mmol/L (0.7-2.1)
[2024-11-28 11:10] LABS: Alanine Aminotransferase 29 U/L (12-78); Albumin/Globulin Ratio 1.4 (1.1-1.8); Alkaline Phosphatase 81 U/L (38-126); Anion Gap 14.1 mEq/L (5-15); Aspartate Amino Transferase 30 U/L (14-36); Calcium 9.4 mg/dl (8.4-10.2); Carbon Dioxide 25 mmol/L (22.0-30.0); Glucose 171 mg/dl (74-100); Lipase 196 U/L (23-300); Total Protein,Serum 7.1 g/dl (6.3-8.2)
[2024-11-28 11:15] LABS: Eosinophils % 1.1 % (0.1-12.0); Hemoglobin 14.3 g/dL (12.2-16.2); Lymphocytes # 1.3 K/mm3 (0.7-4.5); Lymphocytes % 13.9 % (10-50); Mean Platelet Volume 9.6 fl (7.4-10.4); Monocytes % 7.3 % (1.7-9.3); Neutrophils % 77.2 % (37.0-80.0); Platelet Count 195 K/mm3 (142-424); Red Blood Count 4.77 M/mm3 (4.20-5.40); Red Cell Distribution Width 12.7 % (11.5-17.5)
--- NOTE | 2024-11-28 11:15 | ED_ITS ---
Discharge Plan Disposition Patient Disposition: Home, Self-Care Prescriptions Prescriptions: New cefdinir 300 mg capsule 300 mg PO BID 7 Days Qty: 14 0RF prednisone 20 mg tablet 40 mg PO DAILY 5 Days Qty: 10 0RF No Action metformin 1,000 MG tablet 1 tab PO DAILY hydrochlorothiazide 25 MG tablet 25 mg PO DAILY irbesartan 300 MG tablet 300 mg PO DAILY Referrals Follow up/Referrals: Maeve Simpson APRN [Primary Care Provider] - See instructions Clinical Impressions Clinical Impression: Acute UTI, Acute left lumbar radiculopathy, Porcelain gallbladder, Common bile duct dilation Instructions Patient Instructions: DI for Acute Abdominal Pain Print Language Print Language: Tristanian Discharge ED Provider: Jean Carlos Stroud General Adult HPI <Jean Carlos Stroud MD - Last Filed: 11/28/24 15:47> General Chief complaint: Abdominal Pain Stated complaint: stomach back pain bowel problems Time Seen by Provider: 11/28/24 10:27 Mode of Arrival: Wheelchair Source of Information: Patient and Spouse Limitations: No Limitations Description of Symptoms (Recalled from ER Triage Doc. by RN): pt is here today after pcp office sent to er for eval. pt has been having back pain that goes down in left leg since beginning of october, pt saw pcp was given med and order for imaging, pt still had no relief was given a pain medicine and now having difficulties having a bowel mvmt and urination. pt has been giving her fiber and miralax to help and it has not gotten any better. pt states sometimes she has solid bowel mvmt and sometimes its diarrhea.denies any fever or vomiting History of Present Illness HPI narrative: Please note that above description of symptoms, in this electronic medical record under categorization of recalled from ER triage doctor by RN are reflective of an initial nursing assessment, however, is not reflective of my full history and physical exam that was personally taken and clarified. Consequentially, this preceding description of symptoms, which may include the patient's categorized chief complaint in the EMR, do not reflect my personal clinical impression, and the ultimate description of history of present illness and patient stated complaints should be deferred to this section of the note. Unless stated otherwise or congruent with this section of the note, additional signs, symptoms, or incongruence should be interpreted as inaccurate with my clinical impression. Related Data Home Medications ?Medication ?Instructions ?Recorded ?Confirmed hydrochlorothiazide 25 mg tablet 25 mg PO DAILY Fluid 11/12/19 11/12/19 irbesartan 300 mg tablet 300 mg PO DAILY bp 10/03/19 10/03/19 metformin 1,000 mg tablet 1 tab PO DAILY Diabetes 10/03/19 10/03/19 Previous Rx's ?Medication ?Instructions ?Recorded cefdinir 300 mg capsule 300 mg PO BID 7 days #14 caps 11/28/24 prednisone 20 mg tablet 40 mg (2 x 20 mg) PO DAILY 5 days 11/28/24 #10 tabs Allergies Allergy/AdvReac Type Severity Reaction Status Date / Time morphine Allergy Unknown Verified 08/09/19 12:10 codeine Allergy Verified 08/09/19 12:10 [facility] <Jean Carlos Stroud MD - Last Filed: 11/28/24 15:47> COMMUNITY [facility]ALTH Disclaimer: The information contained in this section may have been updated after the patient was seen, as this information can be updated by other users. Social History Smoking Status: Never smoker alcohol intake: never substance use type: other current occupational status: other Travel in the last 8 weeks: None household members: spouse and other housing: house caffeine: Yes Have you lived/traveled outside [place] in past 30 days?: No Contact w/someone who lives/traveled outside US past 30 days?: No Exposure to someone with infectious disease in past 14 days?: No Do you have a fever (greater than 100.4 F or 38 C)?: No Have you tested positive for COVID-19: No Exposed to someone with COVID-19 in past 14 days?: No Do you have a sore throat?: No Do you have a cough?: No Do you have any weakness?: No Do you have any diarrhea?: No Are you experiencing any unusual bleeding?: No Do you have any muscle aches/pain?: No Do you have any abdominal pain?: No Are you experiencing loss of taste or smell?: No Other Medical History Have you received the Flu Vaccine for this season: Yes Have you received the Pneumonia Vaccine: Yes <Jean Carlos Stroud MD - Last Filed: 11/28/24 15:47> ROS Obtained: Yes All systems reviewed & no additional complaints except as documented Physical Exam <Jean Carlos Stroud MD - Last Filed: 11/28/24 15:47> General General appearance: alert Head Head exam: atraumatic and normocephalic Eye Eye exam: Present normal appearance, PERRL and EOMI Neck Neck exam: Present normal inspection, full ROM and trachea midline Respiratory Respiratory exam: Absent respiratory distress, wheezes, stridor, accessory muscle use or prolonged expiratory phase Cardiovascular Cardiovascular exam: Present other (Pulses equal symmetric in upper and lower extremities) Abdominal Exam Abdominal exam: Present soft and tenderness; Absent distention, guarding or pulsatile mass Abdominal tenderness: Present LLQ, suprapubic and moderate Extremities Exam Extremities exam: Absent edema Neurological Exam Neurological exam: Present alert, oriented X3 and CN II-XII intact; Absent motor sensory deficit Skin Skin exam: Present warm and dry; Absent diaphoresis or erythema Medical Decision Making <Jean Carlos Stroud MD - Last Filed: 11/28/24 15:47> Medical Records Medical records reviewed: Yes I reviewed the patient's medical records. Screening: Per USPSTF and CDC recommendations, given the prevalence of disease in our region, it is our hospital?s policy to screen for HIV and viral Hepatitis for all patients aged 18 and over and those with ongoing risk factors. Brooks Inquiry Pt receiving controlled substance: No Brooks was queried for this patient: No Vital Signs: 11/28/24 10:22 11/28/24 11:00 11/28/24 12:17 Temperature 98.1 F Temperature Source Oral Pulse Rate 96 H 107 H Pulse Rate [Left Radial] 105 H Respiratory Rate 20 Blood Pressure 160/92 H 141/97 H Blood Pressure [Right Arm] 177/109 H Blood Pressure Mean Blood Pressure Mean [Right Arm] 131 02 Sat by Pulse Oximetry 100 100 97 Oxygen Delivery Method Room Air Room Air Room Air 11/28/24 12:30 11/28/24 13:01 11/28/24 13:30 Temperature Temperature Source Pulse Rate 93 H 94 H 89 Pulse Rate [Left Radial] Respiratory Rate Blood Pressure 139/85 153/89 H 146/85 H Blood Pressure [Right Arm] Blood Pressure Mean Blood Pressure Mean [Right Arm] 02 Sat by Pulse Oximetry 97 99 99 Oxygen Delivery Method Room Air Room Air Room Air 11/28/24 14:00 11/28/24 15:23 11/28/24 15:27 Temperature Temperature Source Pulse Rate 120 H 116 H Pulse Rate [Left Radial] Respiratory Rate Blood Pressure 153/85 H 197/116 H 200/111 H Blood Pressure [Right Arm] Blood Pressure Mean 104 Blood Pressure Mean [Right Arm] 02 Sat by Pulse Oximetry 98 100 100 Oxygen Delivery Method Room Air Room Air Room Air Lab Data Lab Results 11/28/24 10:30: Urine Color Yellow, Urine Appearance Sl cloudy, Urine pH 6.0, Ur Specific [place] 1.010, Urine Protein Negative, Urine Glucose (UA) Negative, Urine Ketones Negative, Urine Blood Negative, Urine Nitrate Positive A, Urine Bilirubin Negative, Urine Urobilinogen 0.2, Ur Leukocyte Esterase Trace, Urine RBC None, Urine WBC Occasional, Ur Squamous Epith Cells Occasional, Urine Bacteria 2+ 11/28/24 10:50: WBC 9.0, RBC 4.77, Hgb 14.3, Hct 41.0, MCV 86.0, MCH 30.0, MCHC 34.9, RDW 12.7, Plt Count 195, MPV 9.6, Neut % (Auto) 77.2, Lymph % (Auto) 13.9, [place] % (Auto) 7.3, Eos % (Auto) 1.1, Baso % (Auto) 0.2, Neut # (Auto) 7.0, Lymph # (Auto) 1.3, [place] # (Auto) 0.7, Eos # (Auto) 0.1, Baso # (Auto) 0.0, APTT 24.3, Sodium 136, Potassium 4.1, Chloride 101, Carbon Dioxide 25, Anion Gap 14.1, BUN 19 H, Creatinine 0.70, Estimated Creat Clear 64, Estimated GFR 82, Est GFR ( Amer) 99, Glucose 171 H, Lactate 1.8, Calcium 9.4, Total Bilirubin 2.0 H, AST 30, ALT 29, Alkaline Phosphatase 81, Total Protein 7.1, Albumin 4.1, Globulin 3.0, Albumin/Globulin Ratio 1.4, Lipase 196 11/28/24 10:50 11/28/24 10:50 Orders (Tests/Meds): ED MEDICATIONS Discontinued Medications Generic Name Dose Route Start Last Admin Trade Name Freq PRN Reason Stop Dose Admin Hydromorphone HCl 0.5 mg 11/28/24 10:49 11/28/24 11:03 Hydromorphone 2mg/Ml Syringe IV 11/28/24 10:50 0.5 mg ONCE ONE Administration Lactated Ringer's 1,000 mls @ 999 mls/hr 11/28/24 10:49 11/28/24 11:03 Lactated Ringer's 1000 Ml Bag IV 11/28/24 11:49 999 mls/hr .Q1H1M ONE Administration Ceftriaxone Sodium 1 gm/ 50 mls @ 100 mls/hr 11/28/24 12:33 11/28/24 12:51 Sodium Chloride IV 11/28/24 13:02 Not Given ONCE ONE Ceftriaxone Sodium 1 gm/ 50 mls @ 100 mls/hr 11/28/24 12:52 11/28/24 12:56 Sodium Chloride IV 11/28/24 13:21 100 mls/hr ONCE ONE Administration Iopamidol 75 ml 11/28/24 11:36 11/28/24 11:37 Iopamidol-370 (76%);100ml Bottle IV 11/28/24 11:37 75 ml ONCE ONE Administration Ketorolac Tromethamine 15 mg 11/28/24 10:49 11/28/24 11:02 Ketorolac 30mg/Ml Vial IV 11/28/24 10:50 15 mg ONCE ONE Administration Ondansetron HCl 4 mg 11/28/24 10:50 11/28/24 11:03 Ondansetron 4mg/2ml Vial IV 11/28/24 10:51 4 mg ONCE ONE Administration Sodium Chloride 10 ml 11/28/24 11:36 11/28/24 11:37 Sodium Chloride 0.9% 10ml Syr (Rad Only) IV 11/28/24 11:37 10 ml ONCE ONE Administration ORDERS Category Date Time Status CT abdomen pelvis w con Stat Cat Scan 11/28/24 10:49 Completed Complete Blood Count Auto Diff Stat Lab 11/28/24 10:50 Completed Comprehensive Metabolic Panel Stat Lab 11/28/24 10:50 Completed Lactic Acid Stat Lab 11/28/24 10:50 Completed Lipase Stat Lab 11/28/24 10:50 Completed PTT [Activated Partial Thrombo Time] Stat Lab 11/28/24 10:50 Completed Urinalysis and Microscopic Stat Lab 11/28/24 10:30 Completed Urine Culture Stat Micro 11/28/24 10:30 Received Medical Decision Narrative: 74-year-old female presenting with abdominal and rectal pain. Patient states that she has been having back pain for the past few days. Saw her primary care physician who prescribed her opiate medications. Patient started having constipation and is now having rectal pain and left lower quadrant/suprapubic pain is moderate in intensity and does not radiate. Still able to pass gas and not vomiting. No fevers or chills. No blood in her stool, but she is having looser stool at this point. History was obtained via conversation with patient. On arrival, patient hemodynamically stable, alert, oriented x4, appropriate, GCS 15, moving all extremities spontaneously, pupils equal and reactive to light. Full physical exam performed and significant for uncomfortable appearing female who is in no acute distress. Abdomen is soft, nondistended, but it is moderately tender in suprapubic and left lower quadrant. No overlying skin changes and no flank tenderness. Differential includes colitis, fecal impaction, diverticulitis, perforation, PUD, gastritis, urinary tract infection, pyelonephritis, appendicitis, cholecystitis, among others. Patient placed on continuous cardiac monitoring and continuous pulse ox with initial blood pressure 177/109, heart rate 105, saturation 100% on room air. Patient was given Dilaudid, Toradol, fluids, Zofran for symptomatic management and correction of underlying abnormalities. Workup independently interpreted and significant for nonactionable CBC. Chemistry with mildly elevated bilirubin 2.0, but other LFTs are normal. Lipase negative. Urinalysis with nitrate positive urine. On independent interpretation of imaging, patient has stool ball approximately 5 cm, but also has porcelain gallbladder mildly dilated common bile duct. See radiology read for full review of final results. I consulted general surgery here at [facility] who recommended outpatient follow-up with surgical oncology at [facility] given porcelain gallbladder and dilated duct. I feel is appropriate. Given patient presentation, workup, history, this most likely represents urinary tract infection, stool impaction, back spasm. Could also represent pyelonephritis, but I feel this is less likely given no protein or blood in patient's urinalysis. Patient given enema after prolonged conversation, also given Decadron for less likely to be thoracic spinal radiculopathy. Patient able to have bowel movement, but out of abundance of concern, images were shared [facility] and surgical oncology was called. They recommended transfer for ERCP, MRCP, further evaluation. Patient was graciously accepted by Dr. Pina to [facility]. Patient states that she would rather go to [facility], [facility] was contacted. Prior to disposition, care handed off. Notched Blade Loader disclaimer Much of this encounter note is an electronic health science writer spoken language to printed text. Electronic health science writer of the spoken language may permit errors. Although I have reviewed the note, some errors may still exist. <Luciano Humphreys MD - Last Filed: 11/28/24 16:16> Vital Signs: 11/28/24 10:22 11/28/24 11:00 11/28/24 12:17 Temperature 98.1 F Temperature Source Oral Pulse Rate 96 H 107 H Pulse Rate [Left Radial] 105 H Respiratory Rate 20 Blood Pressure 160/92 H 141/97 H Blood Pressure [Right Arm] 177/109 H Blood Pressure Mean Blood Pressure Mean [Right Arm] 131 02 Sat by Pulse Oximetry 100 100 97 Oxygen Delivery Method Room Air Room Air Room Air 11/28/24 12:30 11/28/24 13:01 11/28/24 13:30 Temperature Temperature Source Pulse Rate 93 H 94 H 89 Pulse Rate [Left Radial] Respiratory Rate Blood Pressure 139/85 153/89 H 146/85 H Blood Pressure [Right Arm] Blood Pressure Mean Blood Pressure Mean [Right Arm] 02 Sat by Pulse Oximetry 97 99 99 Oxygen Delivery Method Room Air Room Air Room Air 11/28/24 14:00 11/28/24 15:23 11/28/24 15:27 Temperature Temperature Source Pulse Rate 120 H 116 H Pulse Rate [Left Radial] Respiratory Rate Blood Pressure 153/85 H 197/116 H 200/111 H Blood Pressure [Right Arm] Blood Pressure Mean 104 Blood Pressure Mean [Right Arm] 02 Sat by Pulse Oximetry 98 100 100 Oxygen Delivery Method Room Air Room Air Room Air Lab Data Lab results reviewed: Yes I reviewed the patient's lab results. Lab Results 11/28/24 10:30: Urine Color Yellow, Urine Appearance Sl cloudy, Urine pH 6.0, Ur Specific [place] 1.010, Urine Protein Negative, Urine Glucose (UA) Negative, Urine Ketones Negative, Urine Blood Negative, Urine Nitrate Positive A, Urine Bilirubin Negative, Urine Urobilinogen 0.2, Ur Leukocyte Esterase Trace, Urine RBC None, Urine WBC Occasional, Ur Squamous Epith Cells Occasional, Urine Bacteria 2+ 11/28/24 10:50: WBC 9.0, RBC 4.77, Hgb 14.3, Hct 41.0, MCV 86.0, MCH 30.0, MCHC 34.9, RDW 12.7, Plt Count 195, MPV 9.6, Neut % (Auto) 77.2, Lymph % (Auto) 13.9, [place] % (Auto) 7.3, Eos % (Auto) 1.1, Baso % (Auto) 0.2, Neut # (Auto) 7.0, Lymph # (Auto) 1.3, [place] # (Auto) 0.7, Eos # (Auto) 0.1, Baso # (Auto) 0.0, APTT 24.3, Sodium 136, Potassium 4.1, Chloride 101, Carbon Dioxide 25, Anion Gap 14.1, BUN 19 H, Creatinine 0.70, Estimated Creat Clear 64, Estimated GFR 82, Est GFR ( Amer) 99, Glucose 171 H, Lactate 1.8, Calcium 9.4, Total Bilirubin 2.0 H, AST 30, ALT 29, Alkaline Phosphatase 81, Total Protein 7.1, Albumin 4.1, Globulin 3.0, Albumin/Globulin Ratio 1.4, Lipase 196 Orders (Tests/Meds): ED MEDICATIONS Discontinued Medications Generic Name Dose Route Start Last Admin Trade Name Freq PRN Reason Stop Dose Admin Hydromorphone HCl 0.5 mg 11/28/24 10:49 11/28/24 11:03 Hydromorphone 2mg/Ml Syringe IV 11/28/24 10:50 0.5 mg ONCE ONE Administration Lactated Ringer's 1,000 mls @ 999 mls/hr 11/28/24 10:49 11/28/24 11:03 Lactated Ringer's 1000 Ml Bag IV 11/28/24 11:49 999 mls/hr .Q1H1M ONE Administration Ceftriaxone Sodium 1 gm/ 50 mls @ 100 mls/hr 11/28/24 12:33 11/28/24 12:51 Sodium Chloride IV 11/28/24 13:02 Not Given ONCE ONE Ceftriaxone Sodium 1 gm/ 50 mls @ 100 mls/hr 11/28/24 12:52 11/28/24 12:56 Sodium Chloride IV 11/28/24 13:21 100 mls/hr ONCE ONE Administration Iopamidol 75 ml 11/28/24 11:36 11/28/24 11:37 Iopamidol-370 (76%);100ml Bottle IV 11/28/24 11:37 75 ml ONCE ONE Administration Ketorolac Tromethamine 15 mg 11/28/24 10:49 11/28/24 11:02 Ketorolac 30mg/Ml Vial IV 11/28/24 10:50 15 mg ONCE ONE Administration Ondansetron HCl 4 mg 11/28/24 10:50 11/28/24 11:03 Ondansetron 4mg/2ml Vial IV 11/28/24 10:51 4 mg ONCE ONE Administration Sodium Chloride 10 ml 11/28/24 11:36 11/28/24 11:37 Sodium Chloride 0.9% 10ml Syr (Rad Only) IV 11/28/24 11:37 10 ml ONCE ONE Administration ORDERS Category Date Time Status CT abdomen pelvis w con Stat Cat Scan 11/28/24 10:49 Completed Complete Blood Count Auto Diff Stat Lab 11/28/24 10:50 Completed Comprehensive Metabolic Panel Stat Lab 11/28/24 10:50 Completed Lactic Acid Stat Lab 11/28/24 10:50 Completed Lipase Stat Lab 11/28/24 10:50 Completed PTT [Activated Partial Thrombo Time] Stat Lab 11/28/24 10:50 Completed Urinalysis and Microscopic Stat Lab 11/28/24 10:30 Completed Urine Culture Stat Micro 11/28/24 10:30 Received Medical Decision Narrative: 74-year-old female presenting with abdominal and rectal pain. Patient states that she has been having back pain for the past few days. Saw her primary care physician who prescribed her opiate medications. Patient started having constipation and is now having rectal pain and left lower quadrant/suprapubic pain is moderate in intensity and does not radiate. Still able to pass gas and not vomiting. No fevers or chills. No blood in her stool, but she is having looser stool at this point. History was obtained via conversation with patient. On arrival, patient hemodynamically stable, alert, oriented x4, appropriate, GCS 15, moving all extremities spontaneously, pupils equal and reactive to light. Full physical exam performed and significant for uncomfortable appearing female who is in no acute distress. Abdomen is soft, nondistended, but it is moderately tender in suprapubic and left lower quadrant. No overlying skin changes and no flank tenderness. Differential includes colitis, fecal impaction, diverticulitis, perforation, PUD, gastritis, urinary tract infection, pyelonephritis, appendicitis, cholecystitis, among others. Patient placed on continuous cardiac monitoring and continuous pulse ox with initial blood pressure 177/109, heart rate 105, saturation 100% on room air. Patient was given Dilaudid, Toradol, fluids, Zofran for symptomatic management and correction of underlying abnormalities. Workup independently interpreted and significant for nonactionable CBC. Chemistry with mildly elevated bilirubin 2.0, but other LFTs are normal. Lipase negative. Urinalysis with nitrate positive urine. On independent interpretation of imaging, patient has stool ball approximately 5 cm, but also has porcelain gallbladder mildly dilated common bile duct. See radiology read for full review of final results. I consulted general surgery here at [facility] who recommended outpatient follow-up with surgical oncology at [facility] given porcelain gallbladder and dilated duct. I feel is appropriate. Given patient presentation, workup, history, this most likely represents urinary tract infection, stool impaction, back spasm. Could also represent pyelonephritis, but I feel this is less likely given no protein or blood in patient's urinalysis. Patient given enema after prolonged conversation, also given Decadron for less likely to be thoracic spinal radiculopathy. Patient able to have bowel movement, but out of abundance of concern, images were shared [facility] and surgical oncology was called. They recommended transfer for ERCP, MRCP, further evaluation. Patient was graciously accepted by Dr. Pina to [facility]. Patient states that she would rather go to [facility], [facility] was contacted. Prior to disposition, care handed off. This is Dr. Humphreys I took over from Dr. Stroud pending discussion with [facility]. I spoke to the [facility] general surgeon who has colleagues who are in [place]. He stated they would have outpatient follow-up this was not an emergency they also had no beds. I discussed with the patient and told her that she had 2 options to continue on [facility] to be seen by surgical oncology versus outpatient follow-up with [facility]. She chose [facility]. Therefore patient will be transferred to [facility] emergency department accepted by Dr. Nik Pina. Notched Blade Loader disclaimer Much of this encounter note is an electronic health science writer spoken language to printed text. Electronic health science writer of the spoken language may permit errors. Although I have reviewed the note, some errors may still exist. Critical Care <Jean Carlos Stroud MD - Last Filed: 11/28/24 15:47> Critical Care Time Critical Care Time: Yes (GI) Attestation: On 11/28/24, the high probability of a clinically significant, sudden or life threatening deterioration of the following system(s) required my full and direct attention, intervention and personal management. The time I documented below is in addition to time spent performing reported procedures but includes the following listed in this critical care notation. Total Time Total Critical Care Time: 60
[2024-11-28 11:33] LABS: Activated Partial Thrombo Time 24.3 seconds (22.8-30.6)
[2024-11-28] MEDS: IOPAMIDOL-370 (76%);100ML BOTTLE 75 ML IV (11:37)
[2024-11-28] MEDS: SODIUM CHLORIDE 0.9% 10ML SYR (RAD ONLY) 10 ML IV (11:37)
[2024-11-28] MEDS: CEFTRIAXONE 1 GM 1 GM in 0.9 % SODIUM CHLORIDE 50 ML IV (12:56)
--- NOTE | 2024-11-28 14:37 | PC.NURSE ---
DR JHA AT BEDSIDE TO UPDATE PT
--- NOTE | 2024-11-28 14:46 | PC.NURSE ---
Called [facility] for outpatient treatment per Dr. Stroud for porcelain gallbladder. [facility] stated that they would give us a call back.
--- NOTE | 2024-11-28 15:06 | PC.NURSE ---
milk and molasses enema administered, pt tolerated well however unable to hold any of it in, ER MD made aware
--- NOTE | 2024-11-28 15:16 | PC.NURSE ---
DR JHA IS SPEAKING TO [facility]
--- NOTE | 2024-11-28 15:44 | PC.NURSE ---
Called [facility] for Surgical Oncology per Dr. Stroud for Porcelain Gallbladder. [facility] stated that they would give us a call back. Images have been powershared.
--- NOTE | 2024-11-28 22:28 | PC.NURSE ---
This RN was made aware that patient is awaiting transport to [facility]. Pt was made are around 2100 that she is next in line for [facility] ground transport. Pt sitting upright in bed, A&O, resps even and nonlabored. Has no complaints at this time. vitals updated.
--- NOTE | 2024-11-29 10:45 | PC.NURSE ---
prelim for urine culture discussed with no need to fax at this time, wait for final
--- NOTE | 2024-12-02 11:04 | PC.NURSE ---
URINE CULTURE RESULTS FAXED TO AT [phone]
== END 2024-11-28 23:50 | disposition home or self-care (01) ==
PROVIDERS: Emergency Provider Emergency Medicine; PCP Nurse Practitioner Family
DX: K83.8 Other specified diseases of biliary tract (principal); K82.8 Other specified diseases of gallbladder; M54.16 Radiculopathy, lumbar region; N39.0 Urinary tract infection, site not specified; R10.32 Left lower quadrant pain; R10.2 Pelvic and perineal pain; M54.9 Dorsalgia, unspecified; R39.198 Other difficulties with micturition; K59.00 Constipation, unspecified
CPT/HCPCS: 74177; 80053; 81001; 83605; 83690; 85025; 85730; 87086; 87088; 87186; 96361; 96365; 96374; 96375; 99291; J0696; J1171; J1885; J2405; J7120; Q9967